=== PATIENT | female | born 1985 | race Caucasian/White ===

== ENCOUNTER 2017-08-23 23:01 | Emergency (ER) | payer SELFPAY ==
[2017-08-23 23:24] VITALS: BP 102/69; PULSE 71; RESP 16; TEMP 98.1; O2SAT 97
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
--- NOTE | 2017-08-24 11:23 | RAD ---
PROCEDURE: Left 1st digit x-rays HISTORY: r/o fx COMPARISON: None. FINDINGS: BONES: Transverse fracture noted proximal aspect 1st distal phalanx with mild palmar displacement of the distal fracture fragment. Associated soft tissue swelling noted. JOINTS: No dislocation seen. Positive ulnar variance noted. . SOFT TISSUE: See above OTHER FINDINGS: None. IMPRESSION: Fracture 1st distal phalanx as above.
== END 2017-08-24 00:27 | disposition home or self-care (01) ==
LOC: C.ER 23:01
DX: S62.522A Displaced fracture of distal phalanx of left thumb, initial encounter for closed fracture (principal); Y04.2XXA Assault by strike against or bumped into by another person, initial encounter